=== PATIENT | male | born 1970 | race Caucasian/White ===

== ENCOUNTER 2017-10-09 08:11 | Day surgery (SDC) | payer OTHER ==
--- NOTE | 2017-09-22 07:42 | HP ---
HISTORY AND PHYSICAL: DATE OF ADMISSION/SURGERY: 10/09/17 DATE OF HISTORY AND PHYSICAL: 09/21/17 SURGEON: Dr. Albright * (DICTATED BY BELINDA NOVOA) PROCEDURE: Left knee arthroscopic surgery, chondroplasty. CHIEF COMPLAINT: Left knee pain. HISTORY OF PRESENT ILLNESS: Diaz is a 46-year-old male who has been seen previously for left knee pain for 3 months. He continues to have aching pain that he rates as 4/10 underneath his knee cap. It is worse when kneeling and with stairs. He is also having difficulty with flexion of his knee and he drives a standard truck. He has difficulty bending due to the pain and he reports intermittent swelling when he is on his feet for long periods of time as well as intermittent catching under the knee cap. He denies any locking and he does not remember any injury. He does endorse numbness to his left second and third toes on both plantar and dorsal aspect of his toes. He has tried physical therapy which was not helpful. He was previously doing some of these exercises at home, but he stopped when he had knee swelling after exercises. He has used a knee brace in the past. He has used ice in the past as well. He has failed conservative therapy including a cortisone injection, physical therapy, and decreased activity. Viscosupplementation injections were denied by his insurance company. At this point, he is wanting to proceed with surgery. PAST MEDICAL HISTORY: Includes hypertension and asthma. PAST SURGICAL HISTORY: Right shoulder arthroplasty. MEDICATIONS: 1. Atenolol 50 mg. 2. Ramipril 10 mg. 3. Ibuprofen 600 mg as needed for pain. 4. Albuterol as needed for wheezing. ALLERGIES: No known drug allergies. FAMILY MEDICAL HISTORY: No known family medical problems. SOCIAL HISTORY: Half pack per day for the last 27 years. He does endorse drinking 30 beers per week. He does smoke marijuana; however, he denies any other illicit drug use. REVIEW OF SYSTEMS: He is not able to walk a flight of stairs or a city block due to his knee pain. However, he denies, fevers, chills, night sweats, anesthesia problems in the past, headache, lightheadedness, fainting, knee wounds or rashes, chest pain, palpitations, pedal swelling, wheezing, cough, shortness of breath with exertion, nausea, vomiting, diarrhea, constipation, abdominal pain, dysuria, urinary urgency, back pain, seizure, stroke, depression , anxiety, numbness, tingling, diabetes or thyroid disease, anemia, history of DVT or PE, easy bruising or easy bleeding. Also, denies history of MRSA, hep C , and HIV infections. PHYSICAL EXAMINATION VITAL SIGNS: Height 66 inches, weight 150 pounds, blood pressure 126/76, respirations 20, pain level 2/10, BMI 24.2. GENERAL: Well-developed, well-nourished, 46-year-old male, in no acute distress. Alert and oriented x3 with no gross neurological deficiencies, ambulating with an antalgic gait. HEENT: Normocephalic, atraumatic. Pupils equally round and reactive to light. Extraocular movements intact. NECK: Supple. No palpable cervical lymph nodes. Thyroid is smooth and nontender. PULMONARY: Lungs clear to auscultation bilaterally with no wheezes, rhonchi, or rales. CARDIAC: Regular rate and rhythm. No murmurs, rubs, or gallops. No pedal edema. Pedal pulses 2+ bilaterally. ABDOMEN: Soft and nontender. NEURO: Sensation is intact to light touch. MUSCULOSKELETAL: Skin is intact. No warmth or erythema. No effusion. Tenderness to palpation of his medial joint line as well as the medial and lateral patellar facets. Range of motion from 0 to 130 degrees of flexion, stable to varus and valgus stress. Stable Amarilys's. Negative posterior drawer. Calf is soft and nontender. 2+ pedal pulses. Sensation intact to light touch distally. DIAGNOSTIC STUDIES: Multiple view x-rays and MRI of left knee revealed tricompartmental osteoarthritic change with chondromalacia patella, meniscus appears intact. IMPRESSION: Left knee osteoarthritis and chondromalacia patella. PLAN: Diaz Scott is scheduled to undergo left knee arthroscopic surgery with chondroplasty with Dr. Albright on 10/09/17. He will return to the clinic in 7 to 10 days postop for followup and suture removal. A prescription for pain medication will be sent prior to discharge from hospital. BELINDA NOVOA [id number]/[facility] #: [id number] [facility]ITALJennifer
[~2017-10-09 08:11] MED LIST: Buffered Lidocaine 0.9% SYRIN* 5 ML/SYR SYRINGE INTRADERM ONE; DiMENhydriNATE IV* 50 MG/ML VIAL IV PUSH PRN; Famotidine IV* 10 MG/ML 2 ML (20 mg) IV ONE; Famotidine IV* 10 MG/ML 2 ML (20 mg) ONE; Morphine INJ* 2 MG/ML 1 ML CARPUJECT IV PRN; PROCHLORPERAZINE INJ 5 MG/ML 2 ML VIAL IV PRN; Scopolamine 1.5 mg* PATCH TRANSDERM PRN; fentaNYL* 50 MCG/ML 2 ML VIAL (100 MCG VIAL) IV PRN; oxyCODONE/Acetamin 5/325 MG* TAB PO PRN
[2017-10-09] MEDS ORDERED: Famotidine IV* 10 MG/ML 2 ML (20 mg) ONE (08:22)
[2017-10-09] MEDS ORDERED: ceFAZolin 2 GM PREMIX (*) 2 GM/50 ML BAG IVPB ONE (08:22)
[2017-10-09] MEDS ORDERED: Midazolam* 1 MG/ML 5 ML VIAL (5 MG) ONE (08:38)
[2017-10-09] MEDS ORDERED: KETAMINE HCL* 50 MG/ML 10 ML VIAL ONE (08:38)
[2017-10-09] MEDS ORDERED: fentaNYL* 50 MCG/ML 2 ML VIAL (100 MCG VIAL) ONE (08:38)
[2017-10-09] MEDS ORDERED: Chloroprocaine 2%* 20 ML VIAL ONE (09:56)
[2017-10-09] MEDS ORDERED: Lidocaine 1% MPF wEPI 200,000* 30 ML SDV ONE (09:58)
[2017-10-09] MEDS ORDERED: Bupivacaine 0.25% SDV* 30 ML ONE (09:58)
[2017-10-09] MEDS ORDERED: Lidocaine 2% PF * 5 ML VIAL ONE (10:33)
[2017-10-09] MEDS ORDERED: Metoprolol Tartrate IV* 1 MG/ML 5 ML VIAL ONE (10:33)
[2017-10-09] MEDS ORDERED: Propofol* 10 MG/ML 20 ML BTL IV PUSH ONE (10:33)
[2017-10-09] MEDS ORDERED: methylPREDNISolone ACETATE 80* 80 MG/ML 1 ML VIAL ONE (10:51)
[2017-10-09] MEDS ORDERED: Ketorolac INJ* 30 MG/ML 1 ML VIAL ONE (11:52)
[2017-10-09 12:41] VITALS: BP 162/97
--- NOTE | 2017-10-10 05:53 | OP ---
CC: PCP, Jaden Wilson MD DATE OF SURGERY: 10/09/17 [facility] DATE OF : 68 ATTENDING SURGEON: Baldev Albright MD. ASSISTANTS: BELINDA Schmitt. Vice Chairman was needed for the entirety of the case to help with positioning, retraction, and was utilized throughout all portions of the case. ANESTHESIOLOGIST: Dr. Marshall. ANESTHESIA: Spinal with local MAC. PRE-OP DIAGNOSIS: Left knee osteoarthritis. POST-OP DIAGNOSIS: Left knee medial compartment osteoarthritis with loose bodies and plica. OPERATIVE PROCEDURES: Left knee arthroscopy with: 1. Plica excision anterolateral and anteromedially. 2. Removal of loose body x2, greater than 5 mm. 3. Chondroplasty of the medial femoral condyle. INDICATIONS: Diaz Parks is a 46-year-old male who has had left knee pain for several months, aching pain into the knee cap as well as along the anteromedial aspect of the knee. He has failed conservative management. He did not recall specific walking exercises, but he had failed physical therapy as well as an injection. He elected to proceed with the surgical treatment. Risks and benefits were discussed at length that include, but are not limited to bleeding , infection, damage to nerves, vessels, surrounding structures, wound nonhealing , persistent pain, need for surgery, scarring, stiffness, incomplete relief of symptoms, risk of anesthesia. DESCRIPTION OF PROCEDURE: The patient was greeted in the preoperative area by the attending surgeon. Correct extremity was marked, consent was confirmed. The patient was brought back to the operating suite where he was placed in the supine position on the operating table. He then was sat up and underwent spinal anesthesia, which he tolerated without difficulty, then he underwent local monitored anesthesia care. Unsterile tourniquet placed high on the proximal thigh, lateral post position. The left leg was prepped and draped in the usual sterile fashion beginning with chlorhexidine soap, scrub, and alcohol wipe and a final prep with ChloraPrep. After appropriate surgical pause, indicating side, site, procedure and administration of antibiotics, the knee was intra-articularly injected with 1% lidocaine with epi. The left anterolateral portal was made sharply with an 11 blade. The scope was introduced to the joint. The joint was examined, there was abundant fat pad that was present. The anteromedial port was then made, the ligamentum and the fat pad was then debrided back using the shaver. The ACL and PCL were intact. There was some erythema, medial lateral gutters were unable to be seen easily, therefore the blunt cautery device was used to do plica excision as well as the shaver. The trochlea had grade 1 changes and no obvious unstable flaps. The patella was then visualized and found to have grade 0 to 1 changes with no unstable flaps. The medial and lateral gutters were examined and there were small loose bodies. There were loose bodies that were floating in the notch as well. The shaver and biters were aggressively used to debride these back. The medial compartment was examined and the medial meniscus was intact with no unstable fraying or tears. The medial femoral condyle had grade 2 changes with small unstable flaps, which are debrided back and some areas of fissuring, and the medial plateau also had grade 2 and 3 changes. A Chondroplasty was then done at the medial femoral condyle and the medial plateau. The knee was then placed in a [id number]-enga position and the lateral compartment was examined. There were loose bodies evident, but the lateral femoral condyle had grade 0 to 1 changes, and lateral plateau had grade 1 changes, lateral meniscus was intact. The knee was then carefully, slowly lavaged, removed the remainder of loose bodies, at least 2 of these were greater than 5 mm. The chondroplasty of the medial femoral condyle was completed. Once the synovectomy and plica excision was completed anteriorly, the wounds were copiously irrigated with sterile saline and the knee was thoroughly lavaged, removed all loose debris. The wounds were copiously irrigated with sterile saline and ports were closed with 3-0 nylon. The knee was intra- articularly injected with 80 mg of Depo-Medrol and 30 cc of 0.25% Marcaine plain. Sterile dressings were applied. He had already had a Cryo/ Cuff. The patient was awoken from anesthesia and transferred to PACU in stable condition. POSTOPERATIVE PLAN: He will be weightbearing as tolerated. He will be on crutches for 3 to 5 days. He will have to work on range of motion. He will be discharged with pain medication. DVT prophylaxis was considered, but deferred due to no previous personal or family history. I will see the patient back in 10 to 14 days. [id number]/[facility] #: [id number] DENA
[2017-10-12] MEDS ORDERED: Scopolamine PATCH Remove* 1 NOTE MISC PATCH OFF ONE (05:44)
== END 2017-10-09 12:48 | disposition home or self-care (01) ==
LOC: OREAST 08:11
PROVIDERS: ATTEND Orthopaedic Surgery
DX: M17.12 Unilateral primary osteoarthritis, left knee (principal); M23.42 Loose body in knee, left knee; M67.52 Plica syndrome, left knee; M79.4 Hypertrophy of (infrapatellar) fat pad; I10 Essential (primary) hypertension; J45.909 Unspecified asthma, uncomplicated; F17.210 Nicotine dependence, cigarettes, uncomplicated; M22.42 Chondromalacia patellae, left knee
CPT/HCPCS: J0690; J1040; J1885; J2001; J2250; J2400; J2704; J3010; J3490